=== PATIENT | male | born 2000 | race Caucasian/White ===

== ENCOUNTER 2021-03-01 12:38 | Inpatient (IN) | payer OTHER ==
[~2021-03-01] VITALS: Ht 175.3 cm; Wt 69.9 kg
[2021-03-01 16:00] VITALS: BP 111/59
[2021-03-01] MEDS ORDERED: ACETAMINOPHEN 325 MG TABLET PO PRN (16:00)
[2021-03-01] MEDS: DOCUSATE SODIUM 100 MG CAPSULE PO SCH (20:44)
[2021-03-01] MEDS: SENNA 187 MG TABLET PO SCH (20:44)
[2021-03-01] MEDS: ETHYL ALCOHOL 62% ANTISEPTIC NASAL INHALANT 0.6 ML AMPUL NASAL SCH (20:44)
[2021-03-01] MEDS: MELATONIN 5 MG TABLET PO PRN (20:44)
[2021-03-02] VITALS: BP 123/68
[2021-03-02 05:33] LABS: BASOPHILS % (AUTO) 0.8 % (0.0-2.0); EOSINOPHILS % (AUTO) 1.9 % (1.0-6.0); HEMATOCRIT 40.9 % (41-53); HEMOGLOBIN 14.1 g/dL (13.5-17.5); LYMPHOCYTES # (AUTO) 2.2 K/uL (1.0-4.8); LYMPHOCYTES % (AUTO) 32.9 % (22.0-44.0); MEAN CORPUSCULAR HGB CONC 34.6 G/dL (31.0-37.0); MEAN CORPUSCULAR VOLUME 90 fL (80-100); MONOCYTES # (AUTO) 0.7 K/uL (0.1-1.0); MONOCYTES % (AUTO) 10.4 % (2.0-9.0); NEUTROPHILS # (AUTO) 3.6 K/uL (1.8-7.7); PLATELET COUNT (AUTO) 330 K/uL (150-450); RED BLOOD CELL COUNT(AUTO) 4.56 MIL/uL (4.50-5.90); RED CELL DISTRIBUTION WIDTH 12.5 % (11.5-14.5)
[2021-03-02 06:29] LABS: ALANINE AMINOTRANSFERASE 67 U/L (12-78); ALBUMIN 3.6 g/dL (3.4-5.0); ALKALINE PHOSPHATASE 54 U/L (46-116); ANION GAP 4 mmol/L (8-16); ASPARTATE AMINOTRANSFERASE 32 U/L (15-37); BILIRUBIN,TOTAL 0.4 mg/dL (0.1-1.0); CARBON DIOXIDE 30 mmol/L (22-29); CHLORIDE 104 mmol/L (98-107); CREATININE 0.97 mg/dL (0.60-1.30); GLOMERULAR FILTR. RATE CALC > 60 mL/min (>60); GLUCOSE,RANDOM 93 mg/dL (70-110); POTASSIUM 4.5 mmol/L (3.5-5.1); SODIUM SERUM 138 mmol/L (136-145); TOTAL PROTEIN, SERUM 7.3 g/dL (6.4-8.2); UREA NITROGEN, BLOOD 13 mg/dL (7-18)
[2021-03-02] MEDS: ETHYL ALCOHOL 62% ANTISEPTIC NASAL INHALANT 0.6 ML AMPUL NASAL SCH ×2 (08:23→20:39)
[2021-03-02] MEDS: DOCUSATE SODIUM 100 MG CAPSULE PO SCH ×2 (08:23→20:39)
[2021-03-02 08:48] VITALS: BP 106/47
[2021-03-02 16:44] VITALS: BP 107/50
[2021-03-02] MEDS: MELATONIN 5 MG TABLET PO PRN (20:39)
[2021-03-02] MEDS: SENNA 187 MG TABLET PO SCH (20:39)
[2021-03-03 05:10] VITALS: BP 104/40
[2021-03-03] MEDS: ETHYL ALCOHOL 62% ANTISEPTIC NASAL INHALANT 0.6 ML AMPUL NASAL SCH ×2 (07:54→20:31)
[2021-03-03] MEDS: DOCUSATE SODIUM 100 MG CAPSULE PO SCH ×2 (08:00→20:31)
[2021-03-03 08:16] VITALS: BP 113/63
[2021-03-03 11:55] LABS: COVID AG,FIA SOURCE NASAL SWAB
[2021-03-03 16:23] VITALS: BP 110/57
[2021-03-03] MEDS: MELATONIN 5 MG TABLET PO PRN (20:32)
[2021-03-03] MEDS: SENNA 187 MG TABLET PO SCH (20:32)
[2021-03-04] VITALS: BP 104/53
[2021-03-04 08:11] VITALS: BP 107/57
[2021-03-04] MEDS: ETHYL ALCOHOL 62% ANTISEPTIC NASAL INHALANT 0.6 ML AMPUL NASAL SCH ×2 (08:36→20:29)
[2021-03-04] MEDS: DOCUSATE SODIUM 100 MG CAPSULE PO SCH ×2 (08:37→20:29)
[2021-03-04 16:15] VITALS: BP 130/52
[2021-03-04] MEDS: SENNA 187 MG TABLET PO SCH (20:29)
[2021-03-04] MEDS: MELATONIN 5 MG TABLET PO PRN (20:30)
[2021-03-05 05:30] VITALS: BP 97/44
[2021-03-05] MEDS: ETHYL ALCOHOL 62% ANTISEPTIC NASAL INHALANT 0.6 ML AMPUL NASAL SCH ×2 (08:57→20:40)
[2021-03-05] MEDS: DOCUSATE SODIUM 100 MG CAPSULE PO SCH ×2 (08:57→20:40)
[2021-03-05 10:16] VITALS: BP 111/59
[2021-03-05 16:22] VITALS: BP 115/59
[2021-03-05] MEDS: MELATONIN 5 MG TABLET PO PRN (20:40)
[2021-03-05] MEDS: SENNA 187 MG TABLET PO SCH (20:40)
[2021-03-06 00:21] VITALS: BP 104/36
[2021-03-06 04:45] VITALS: BP 107/60
[2021-03-06 08:43] VITALS: BP 102/62
[2021-03-06] MEDS: ETHYL ALCOHOL 62% ANTISEPTIC NASAL INHALANT 0.6 ML AMPUL NASAL SCH ×2 (09:00→20:29)
[2021-03-06] MEDS: DOCUSATE SODIUM 100 MG CAPSULE PO SCH ×2 (09:00→20:29)
[2021-03-06 16:00] VITALS: BP 129/72
[2021-03-06] MEDS: SENNA 187 MG TABLET PO SCH (20:29)
[2021-03-06] MEDS: MELATONIN 5 MG TABLET PO PRN (20:29)
[2021-03-07] VITALS: BP 148/68
[2021-03-07 08:15] VITALS: BP 104/47
[2021-03-07] MEDS: ETHYL ALCOHOL 62% ANTISEPTIC NASAL INHALANT 0.6 ML AMPUL NASAL SCH ×2 (08:49→20:41)
[2021-03-07] MEDS: DOCUSATE SODIUM 100 MG CAPSULE PO SCH ×2 (08:49→20:41)
[2021-03-07] MEDS ORDERED: MAGNESIUM HYDROXIDE SUSPENSION 30 ML UDCUP PO PRN (14:15)
[2021-03-07 16:02] VITALS: BP_SYST 120; BP_DIAS 6; BP_DIAS 61
[2021-03-07] MEDS: MELATONIN 5 MG TABLET PO PRN (20:41)
[2021-03-07] MEDS: SENNA 187 MG TABLET PO SCH (20:42)
[2021-03-08] VITALS: BP 109/77
[2021-03-08 08:36] VITALS: BP 102/46
[2021-03-08] MEDS: ETHYL ALCOHOL 62% ANTISEPTIC NASAL INHALANT 0.6 ML AMPUL NASAL SCH ×2 (08:40→20:34)
[2021-03-08] MEDS: DOCUSATE SODIUM 100 MG CAPSULE PO SCH ×2 (08:41→20:34)
[2021-03-08 16:02] VITALS: BP 124/61
[2021-03-08] MEDS: SENNA 187 MG TABLET PO SCH (20:34)
[2021-03-08] MEDS: MELATONIN 5 MG TABLET PO PRN (20:35)
[2021-03-09 06:24] VITALS: BP 126/48
[2021-03-09 08:00] VITALS: BP 107/47
[2021-03-09] MEDS: ETHYL ALCOHOL 62% ANTISEPTIC NASAL INHALANT 0.6 ML AMPUL NASAL SCH ×2 (08:46→20:45)
[2021-03-09] MEDS: DOCUSATE SODIUM 100 MG CAPSULE PO SCH ×2 (08:47→20:45)
[2021-03-09 16:12] VITALS: BP 125/62
[2021-03-09] MEDS: SENNA 187 MG TABLET PO SCH (20:45)
[2021-03-09] MEDS: MELATONIN 5 MG TABLET PO PRN (20:45)
[2021-03-10] VITALS: BP 119/51
[2021-03-10] MEDS: DOCUSATE SODIUM 100 MG CAPSULE PO SCH ×2 (09:00→20:35)
[2021-03-10] MEDS: ETHYL ALCOHOL 62% ANTISEPTIC NASAL INHALANT 0.6 ML AMPUL NASAL SCH ×2 (10:45→20:35)
[2021-03-10 10:52] VITALS: BP 114/69
[2021-03-10 16:34] VITALS: BP 130/72
[2021-03-10] MEDS: SENNA 187 MG TABLET PO SCH (20:35)
[2021-03-10] MEDS: MELATONIN 5 MG TABLET PO PRN (20:35)
[2021-03-11] VITALS: BP 125/62
[2021-03-11] MEDS: ETHYL ALCOHOL 62% ANTISEPTIC NASAL INHALANT 0.6 ML AMPUL NASAL SCH ×2 (08:19→20:10)
[2021-03-11] MEDS: DOCUSATE SODIUM 100 MG CAPSULE PO SCH ×2 (08:21→20:10)
[2021-03-11 08:47] VITALS: BP 127/60
[2021-03-11 15:20] VITALS: BP 109/63
[2021-03-11] MEDS: SENNA 187 MG TABLET PO SCH (20:10)
[2021-03-11] MEDS: MELATONIN 5 MG TABLET PO PRN (20:10)
[2021-03-12] VITALS: BP 123/55
[2021-03-12] MEDS: DOCUSATE SODIUM 100 MG CAPSULE PO SCH ×2 (07:58→21:00)
[2021-03-12] MEDS: ETHYL ALCOHOL 62% ANTISEPTIC NASAL INHALANT 0.6 ML AMPUL NASAL SCH ×2 (07:58→21:00)
[2021-03-12 08:35] VITALS: BP 103/58
[2021-03-12 15:28] VITALS: BP 125/59
[2021-03-12] MEDS: SENNA 187 MG TABLET PO SCH (21:00)
[2021-03-12] MEDS: MELATONIN 5 MG TABLET PO PRN (21:00)
[2021-03-12 23:36] VITALS: BP 108/60
[2021-03-13] MEDS: DOCUSATE SODIUM 100 MG CAPSULE PO SCH ×2 (07:47→20:32)
[2021-03-13] MEDS: ETHYL ALCOHOL 62% ANTISEPTIC NASAL INHALANT 0.6 ML AMPUL NASAL SCH ×2 (07:47→20:32)
[2021-03-13 08:05] VITALS: BP 108/55
[2021-03-13 16:59] VITALS: BP 122/60
[2021-03-13] MEDS: MELATONIN 5 MG TABLET PO PRN (20:32)
[2021-03-13] MEDS: SENNA 187 MG TABLET PO SCH (20:32)
[2021-03-14] VITALS: BP 122/63
[2021-03-14] MEDS ORDERED: DOCU-270 PO (02:06)
[2021-03-14] MEDS ORDERED: MELA5TAB40 PO (02:06)
[2021-03-14] MEDS ORDERED: ACET-2247 PO (02:06)
[2021-03-14] MEDS ORDERED: SENN8.6T90 PO (02:06)
[2021-03-14] MEDS ORDERED: MOM30 PO (02:06)
[2021-03-14 08:30] VITALS: BP 105/51
[2021-03-14] MEDS: DOCUSATE SODIUM 100 MG CAPSULE PO SCH ×2 (08:37→21:00)
[2021-03-14] MEDS: ETHYL ALCOHOL 62% ANTISEPTIC NASAL INHALANT 0.6 ML AMPUL NASAL SCH ×2 (08:37→21:13)
[2021-03-14 16:10] VITALS: BP 118/70
[2021-03-14] MEDS: SENNA 187 MG TABLET PO SCH (21:00)
[2021-03-14] MEDS: MELATONIN 5 MG TABLET PO PRN (21:14)
[2021-03-15] VITALS: BP 121/52
[2021-03-15] MEDS: ETHYL ALCOHOL 62% ANTISEPTIC NASAL INHALANT 0.6 ML AMPUL NASAL SCH ×2 (08:30→20:03)
[2021-03-15] MEDS: DOCUSATE SODIUM 100 MG CAPSULE PO SCH ×2 (08:31→20:03)
[2021-03-15 12:46] VITALS: BP 115/71
[2021-03-15 16:30] VITALS: BP 122/74
[2021-03-15] MEDS: MELATONIN 5 MG TABLET PO PRN (20:03)
[2021-03-15] MEDS: SENNA 187 MG TABLET PO SCH (20:03)
[2021-03-16] VITALS: BP 116/67
[2021-03-16] MEDS: ETHYL ALCOHOL 62% ANTISEPTIC NASAL INHALANT 0.6 ML AMPUL NASAL SCH ×2 (08:48→20:50)
[2021-03-16] MEDS: DOCUSATE SODIUM 100 MG CAPSULE PO SCH ×2 (08:49→20:48)
[2021-03-16 09:14] VITALS: BP 115/67
[2021-03-16 15:28] VITALS: BP 123/55
[2021-03-16] MEDS: SENNA 187 MG TABLET PO SCH (20:48)
[2021-03-16] MEDS: MELATONIN 5 MG TABLET PO PRN (20:48)
[2021-03-17] VITALS: BP 118/66
[2021-03-17 09:00] VITALS: BP 121/57
[2021-03-17] MEDS: DOCUSATE SODIUM 100 MG CAPSULE PO SCH ×2 (09:00→21:15)
[2021-03-17] MEDS: ETHYL ALCOHOL 62% ANTISEPTIC NASAL INHALANT 0.6 ML AMPUL NASAL SCH ×2 (09:34→21:15)
[2021-03-17 16:02] VITALS: BP 105/53
[2021-03-17] MEDS: MELATONIN 5 MG TABLET PO PRN (21:15)
[2021-03-17] MEDS: SENNA 187 MG TABLET PO SCH (21:16)
[2021-03-18] VITALS: BP 119/66
[2021-03-18 08:40] VITALS: BP 118/71
[2021-03-18] MEDS: DOCUSATE SODIUM 100 MG CAPSULE PO SCH (08:53)
[2021-03-18] MEDS: ETHYL ALCOHOL 62% ANTISEPTIC NASAL INHALANT 0.6 ML AMPUL NASAL SCH (08:54)
[2021-03-18] MEDS ORDERED: BACL10TA PO (09:57)
== END 2021-03-18 10:00 | disposition home or self-care (01) | DRG 56 ==
LOC: 2WR 14:15
PROVIDERS: ADMIT Physical Medicine & Rehabilitation; ATTEND Physical Medicine & Rehabilitation
DX: G81.94 Hemiplegia, unspecified affecting left nondominant side (principal); I63.9 Cerebral infarction, unspecified; U07.1 COVID-19; K59.00 Constipation, unspecified; G31.84 Mild cognitive impairment of uncertain or unknown etiology; G47.00 Insomnia, unspecified; H53.2 Diplopia; R47.1 Dysarthria and anarthria; Z79.899 Other long term (current) drug therapy
CPT/HCPCS: 80053; 85025; 87081; 92507; 92523; 93970; 97032; 97110; 97112; 97116; 97140; 97162; 97167; 97530; 97535; 99366; Q9967